=== PATIENT | male | born 1955 | race Hispanic/Latino ===

== ENCOUNTER 2017-01-02 19:53 | Emergency (ER) | payer OTHER ==
[2017-01-02 19:53] VITALS: BMI 34.0
[2017-01-02 20:05] VITALS: BP 166/83; PULSE 71; RESP 20; TEMP 97.5; O2SAT 97
--- NOTE | 2017-01-02 20:18 | C.PDOC ---
History Of Present Illness 61 yr old male presents to the ER with complaints of right ankle pain intermittently for the past 2 months. Patient states today the pain increased while walking. Patient denies any OTC meds, trauma or fall, twisting injury, leg pain, back pain, weakness or numbness. Time Seen by Provider: 01/02/17 20:11 Chief Complaint (Nursing): Lower Extremity Problem/Injury History Per: Patient History/Exam Limitations: no limitations Onset/Duration Of Symptoms: Persistent (2 months) Current Symptoms Are (Timing): Still Present Past Medical History Reviewed: Historical Data, Nursing Documentation, Vital Signs Vital Signs: Last Vital Signs Temp 97.5 F L 01/02/17 19:57 Pulse 71 01/02/17 19:57 Resp 20 01/02/17 21:10 BP 166/83 H 01/02/17 19:57 Pulse Ox 97 01/02/17 21:32 - Medical History PMH: Diabetes, HTN, Kidney Stones, Chronic Kidney Disease Surgical History: Endoscopy - [facility] Procedures DX ULTRASOUND-DIGESTIVE (02/06/15) ESOPHAGOGASTRODUODENOSCOPY [EGD] W/CLOSED BIOPSY (02/06/15) Family History: States: No Known Family Hx - Social History Hx Tobacco Use: No Hx Alcohol Use: No Hx Substance Use: No - Immunization History Hx Tetanus Toxoid Vaccination: No Hx Influenza Vaccination: No Hx Pneumococcal Vaccination: No Review Of Systems Except As Marked, All Systems Reviewed And Found Negative. Musculoskeletal: Positive for: Other ((+) Right ankle pain (-) No twisting injury. ). Negative for: Back Pain, Leg Pain Neurological: Negative for: Weakness, Numbness Physical Exam - Physical Exam Appears: Non-toxic, No Acute Distress Skin: Warm, Dry Head: Atraumatic, Normacephalic Eye(s): bilateral: Normal Inspection, PERRL Extremity: Normal ROM, Tenderness (at lat malleolus of right ankle ), No Calf Tenderness, Capillary Refill (<2), No Deformity, No Swelling Extremity: Bilateral: Atraumatic Pulses: Left Dorsalis Pedis: Normal, Right Dorsalis Pedis: Normal Neurological/Psych: Oriented x3, Normal Speech, Normal Motor, Normal Sensation Gait: Steady ED Course And Treatment O2 Sat by Pulse Oximetry: 97 - Other Rad X-Ray - Right Ankle X-Ray: Interpreted by Me, Viewed By Me Interpretation: No fractures. No dislocations. Progress Note: XRay was done which was negative for fractures or dislocations. Patient ankle was wrapped in joseph wrap and given Motrin for the pain. On reassessment, patient is resting comfortably, and is in no acute distress. Patient was instructed to follow up with physician/clinic in 1-2 days for further evaluation. Medical Decision Making Medical Decision Making: PLAN: * X-Ray - Right Ankle * Motrin PO Disposition Counseled Patient/Family Regarding: Diagnosis, Need For Followup, Rx Given - Disposition Disposition: HOME/ ROUTINE Disposition Time: 20:56 Condition: GOOD Additional Instructions: Apply ICE wrap to area Leg elevation Motrin for pain Return to ER if worse Prescriptions: Ibuprofen [Motrin] 600 mg PO Q6H #30 tab Instructions: Arthralgia (ED) Forms: Work Excuse - Clinical Impression Clinical Impression: Ankle pain, right - PA / DIRECTOR FINANCIAL ANALYSIS / Resident Statement MD/DO has reviewed & agrees with the documentation as recorded. - Scribe Statement The provider has reviewed the documentation as recorded by the Scribe Linda Sanderson All medical record entries made by the Simónibrambo were at my direction and personally dictated by me. I have reviewed the chart and agree that the record accurately reflects my personal performance of the history, physical exam, medical decision making, and the department course for this patient. I have also personally directed, reviewed, and agree with the discharge instructions and disposition.
--- NOTE | 2017-01-03 10:57 | RAD ---
PROCEDURE: Right ankle Radiographs. HISTORY: ankle pain COMPARISON: None. FINDINGS: BONES: Normal. No fracture. JOINTS: Normal. No dislocation. SOFT TISSUES: Soft tissue swelling along the lateral malleolus. OTHER FINDINGS: Mild posterior calcaneal spurring. IMPRESSION: No apparent fracture.
== END 2017-01-02 21:09 | disposition home or self-care (01) ==
LOC: C.ER 19:53
DX: M25.571 Pain in right ankle and joints of right foot (principal)

== ENCOUNTER 2018-04-08 14:49 | Emergency (ER) | payer OTHER ==
[2018-04-08 14:50] VITALS: BMI 34.0
[2018-04-08 15:16] VITALS: O2SAT 98
[2018-04-08 16:05] VITALS: BP 148/70; PULSE 63; RESP 18; TEMP 98.4
--- NOTE | 2018-04-08 18:50 | C.PDOC ---
History Of Present Illness 62 y/o male presents to the ER complaining of mid-back pain which has been present for the past 2 days. Patient states that he picked up a heavy object. Patient denies having direct trauma, bowel/ bladder dysfunction, and saddle anaesthesia. Chief Complaint (Nursing): Back Pain History Per: Patient History/Exam Limitations: no limitations Onset/Duration Of Symptoms: Days Current Symptoms Are (Timing): Still Present Severity: Moderate Past Medical History Reviewed: Historical Data, Nursing Documentation, Vital Signs Vital Signs: Last Vital Signs Temp 98.4 F 04/08/18 16:04 Pulse 63 04/08/18 16:04 Resp 18 04/08/18 16:04 BP 148/70 04/08/18 16:04 Pulse Ox 98 04/08/18 18:56 - Medical History PMH: Diabetes, HTN, Kidney Stones, Chronic Kidney Disease Surgical History: Endoscopy - [facility] Procedures DX ULTRASOUND-DIGESTIVE (02/06/15) ESOPHAGOGASTRODUODENOSCOPY [EGD] W/CLOSED BIOPSY (02/06/15) Family History: States: No Known Family Hx - Social History Hx Tobacco Use: No Hx Alcohol Use: No Hx Substance Use: No - Immunization History Hx Tetanus Toxoid Vaccination: No Hx Influenza Vaccination: No Hx Pneumococcal Vaccination: No Review Of Systems Except As Marked, All Systems Reviewed And Found Negative. Genitourinary: Negative for: Incontinence Musculoskeletal: Positive for: Back Pain (mid back pain) Physical Exam - Physical Exam Appears: Non-toxic, No Acute Distress Skin: Normal Color, Warm, Dry Head: Atraumatic, Normacephalic Eye(s): bilateral: Normal Inspection Nose: Normal Oral Mucosa: Moist Neck: Supple Chest: Symmetrical Cardiovascular: Rhythm Regular Respiratory: Normal Breath Sounds, No Rales, No Rhonchi, No Wheezing Back: Muscle Spasm (hypertonic muscle spasm), Other (diffuse tenderness to mid back) Neurological/Psych: Oriented x3, Normal Speech ED Course And Treatment O2 Sat by Pulse Oximetry: 98 (RA) Pulse Ox Interpretation: Normal Medical Decision Making Medical Decision Making: Patient has been discharged and instructed to follow up with PMD in 2-3 days. Disposition - Disposition Referrals: Danika Tran MD [Staff Provider] - Disposition: HOME/ ROUTINE Disposition Time: 15:55 Condition: GOOD Additional Instructions: SERENA SANTANA, thank you for letting us take care of you today. Your provider was Roby Lucas DO and you were treated for BACK PAIN. The emergency medical care you received today was directed at your acute symptoms. If you were prescribed any medication, please fill it and take as directed. It may take several days for your symptoms to resolve. Return to the Emergency Department if your symptoms worsen, do not improve, or if you have any other problems. Please contact your doctor or call one of the physicians/clinics you have been referred to that are listed on the Patient Visit Information form that is included in your discharge packet. Bring any paperwork you were given at discharge with you along with any medications you are taking to your follow up visit. Our treatment cannot replace ongoing medical care by a primary care provider outside of the emergency department. Thank you for allowing the [facility] team to be part of your care today. Follow up with your primary care doctor in 2-3 days for re-evaluation and further management. Prescriptions: Cyclobenzaprine [Cyclobenzaprine HCl] 10 mg PO Q8 PRN #20 tab PRN Reason: Muscle Spasm Ibuprofen [Motrin] 600 mg PO Q6 PRN #20 tab PRN Reason: Pain, Moderate (4-7) Instructions: Lumbar Muscle Strain (DC) Forms: [employer] (Maltese), Work Excuse - Clinical Impression Clinical Impression: Low back strain - Scribe Statement The provider has reviewed the documentation as recorded by the Simónibrambo Sebastian Provider Attestation: All medical record entries made by the Scribe were at my direction and personally dictated by me. I have reviewed the chart and agree that the record accurately reflects my personal performance of the history, physical exam, medical decision making, and the department course for this patient. I have also personally directed, reviewed, and agree with the discharge instructions and disposition.
== END 2018-04-08 16:11 | disposition home or self-care (01) ==
LOC: C.ER 14:49
DX: S39.012A Strain of muscle, fascia and tendon of lower back, initial encounter (principal); X50.0XXA Overexertion from strenuous movement or load, initial encounter

== ENCOUNTER 2018-11-30 15:31 | Outpatient (CLI) | payer OTHER | END 2018-11-30 15:32 | disposition home or self-care (01) | LOC: C.RADH 15:31 | DX: J18.9 Pneumonia, unspecified organism (principal); R91.8 Other nonspecific abnormal finding of lung field; R05 Cough ==

== ENCOUNTER 2018-12-07 07:21 | Outpatient (CLI) | payer OTHER | END 2018-12-07 07:22 | disposition home or self-care (01) | LOC: C.LAB 07:21 | DX: N40.0 Benign prostatic hyperplasia without lower urinary tract symptoms (principal); R50.9 Fever, unspecified; R73.09 Other abnormal glucose; E78.2 Mixed hyperlipidemia ==

== ENCOUNTER 2018-12-28 09:05 | Outpatient (CLI) | payer OTHER | END 2018-12-28 09:06 | disposition home or self-care (01) | LOC: C.LAB 09:05 | DX: R97.20 Elevated prostate specific antigen [PSA] (principal) ==

== ENCOUNTER 2019-01-11 14:34 | Emergency (ER) | payer OTHER ==
[2019-01-11 14:34] VITALS: BMI 34.0
[2019-01-11] MEDS ORDERED: Lidocaine 5% Patch TD STA (16:30)
[2019-01-11] MEDS ORDERED: Lidocaine 5% Patch TD ONE (16:39)
--- NOTE | 2019-01-11 16:42 | RAD ---
Date of service: 01/11/2019 PROCEDURE: Radiographs of the Right Shoulder HISTORY: Pain COMPARISON: No prior. FINDINGS: BONES: Normal. No fracture. 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 SOFT TISSUES: Normal. OTHER FINDINGS: None. IMPRESSION: No evidence of acute displaced fracture nor dislocation. 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
[2019-01-11 16:53] VITALS: BP 131/75; PULSE 61; RESP 20; TEMP 98.5; O2SAT 97
--- NOTE | 2019-01-11 17:12 | C.PDOC ---
History Of Present Illness 63 year old male presents to ED with complaint of right shoulder pain for the past 2 weeks. Patient states that several years ago he had similar symptoms and had an MRI of his right shoulder done. MRI showed that he had tendon problems. Patient states that since then it has not bothered him. Patient denies numbness or weakness. Time Seen by Provider: 01/11/19 15:33 Chief Complaint (Nursing): Upper Extremity Problem/Injury History Per: Patient History/Exam Limitations: no limitations Onset/Duration Of Symptoms: Other (2 weeks) Current Symptoms Are (Timing): Still Present Quality: "Pain" Past Medical History Reviewed: Historical Data, Nursing Documentation, Vital Signs Vital Signs: Last Vital Signs Temp 98.5 F 01/11/19 16:52 Pulse 61 01/11/19 16:52 Resp 20 01/11/19 16:52 BP 131/75 01/11/19 16:52 Pulse Ox 97 01/11/19 16:52 - Medical History PMH: Diabetes, HTN, Kidney Stones, Chronic Kidney Disease Surgical History: Endoscopy - [facility] Procedures DX ULTRASOUND-DIGESTIVE (02/06/15) ESOPHAGOGASTRODUODENOSCOPY [EGD] W/CLOSED BIOPSY (02/06/15) Family History: States: Unknown Family Hx - Social History Hx Tobacco Use: No Hx Alcohol Use: No Hx Substance Use: No - Immunization History Hx Tetanus Toxoid Vaccination: No Hx Influenza Vaccination: Yes Hx Pneumococcal Vaccination: No Review Of Systems Constitutional: Negative for: Fever, Chills, Weakness Musculoskeletal: Positive for: Shoulder Pain (right shoulder) Neurological: Negative for: Weakness, Numbness, Dizziness Physical Exam - Physical Exam Appears: Well, Non-toxic, No Acute Distress Skin: Normal Color, Warm, Dry Head: Atraumatic, Normacephalic Neck: Normal ROM, Supple Chest: Symmetrical, No Deformity Respiratory: No Accessory Muscle Use Extremity: Tenderness (diffuse tenderness to the right shoulder, pain with arm adduction), Capillary Refill (<2 seconds) Neurological/Psych: Oriented x3, Normal Speech, Normal Cognition ED Course And Treatment O2 Sat by Pulse Oximetry: 97 (in RA) - Other Rad Right shoulder X-ray X-Ray: Interpreted by Me, Viewed By Me Interpretation: Accession No. : [id number]. Patient Name / ID : ESTHER LYONS / [id number]. Exam Date : 01/11/2019 16:04:02 ( Approved ). Study Comment : Sex / Age : M / 63Y. Creator : Mamadou Ba MD. Dictator : Mamadou Ba MD. Commercial Intelligence Manager : Podopediatrician : Mamadou Ba MD. Approver2 : Report Date : 01/11/2019 16:39:05. My Comment : . Date of service: 01/11/2019. PROCEDURE: Radiographs of the Right Shoulder. HISTORY: Pain. COMPARISON: No prior. FINDINGS: BONES: Normal. No fracture. 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 SOFT TISSUES: Normal. OTHER FINDINGS: None. IMPRESSION: No evidence of acute displaced fracture nor dislocation. 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 Progress Note: Patient given Lidoderm and Toradol. Right shoulder X-ray ordered for patient. Re-evaluation. Patient feels better. Discussed results and plan with patient who expresses understanding. All questions answered and there is agreement with the plan to discharge home with instructions. Patient stable for discharge. Return if symptoms persist or worsen. Disposition - Disposition Referrals: Douglas Gurrola MD [Staff Provider] - Disposition: HOME/ ROUTINE Disposition Time: 17:09 Condition: STABLE Additional Instructions: Follow up with Orthopedist and PMD within 1-2 days. Return to ED if feel worse. Prescriptions: Lidocaine 5% [Lidoderm] 1 patch TP DAILY #30 patch Ibuprofen [Motrin Tab] 400 mg PO Q8 #30 tab Instructions: Shoulder Pain (DC) Forms: [facility] (Yi), Work Excuse - Clinical Impression Clinical Impression: Shoulder pain - PA / POT PUSHER / Resident Statement MD/DO has reviewed & agrees with the documentation as recorded. (Annette Hyde) - Scribe Statement The provider has reviewed the documentation as recorded by the Scribe (Annette Hyde) All medical record entries made by the Scribe were at my direction and personally dictated by me. I have reviewed the chart and agree that the record accurately reflects my personal performance of the history, physical exam, medical decision making, and the department course for this patient. I have also personally directed, reviewed, and agree with the discharge instructions and disposition.
== END 2019-01-11 17:18 | disposition home or self-care (01) ==
LOC: C.ER 14:34
DX: M25.511 Pain in right shoulder (principal)
CPT/HCPCS: 73030; 96372; 99283; J1885

== ENCOUNTER 2019-01-15 07:55 | Outpatient (CLI) | payer OTHER | END 2019-01-15 07:56 | disposition home or self-care (01) | LOC: C.MRIC 07:56 | DX: R97.20 Elevated prostate specific antigen [PSA] (principal) ==

== ENCOUNTER 2019-01-22 07:53 | Outpatient (CLI) | payer OTHER | END 2019-01-22 07:54 | disposition home or self-care (01) | LOC: C.LAB 07:53 | DX: E11.65 Type 2 diabetes mellitus with hyperglycemia (principal); E78.2 Mixed hyperlipidemia; E04.1 Nontoxic single thyroid nodule ==

== ENCOUNTER 2019-02-03 10:06 | Outpatient (CLI) | payer OTHER | END 2019-02-03 10:07 | disposition home or self-care (01) | LOC: C.DIABED 10:06 | DX: E11.65 Type 2 diabetes mellitus with hyperglycemia (principal) ==

== ENCOUNTER 2019-02-26 08:12 | Outpatient (CLI) | payer OTHER | END 2019-02-26 08:13 | disposition home or self-care (01) | LOC: C.CARD 08:12 ==

== ENCOUNTER 2019-03-02 14:27 | Outpatient (CLI) | payer OTHER | END 2019-03-02 14:28 | disposition home or self-care (01) | LOC: C.LAB 14:27 | DX: I10 Essential (primary) hypertension (principal) ==